=== PATIENT | female | born 1970 | race Caucasian/White ===

== ENCOUNTER → 2016-10-20 | Outpatient (CLI) | payer BC ==
[~2016-10-20] MED LIST: DICL-201 PO
--- NOTE | 2016-10-20 15:21 | MAMMOGRAPHY REPORT ---
BILATERAL DIGITAL SCREENING MAMMOGRAM TOMOSYNTHESIS WITH CAD: 10/20/2016 CLINICAL HISTORY: Routine screening. Patient has no complaints. TECHNIQUE: Breast tomosynthesis in addition to standard 2D mammography was performed. Current study was also evaluated with a Computer Aided Detection (CAD) system. COMPARISON: Comparison is made to exams dated: 10/05/2015 mammogram, 10/02/2014 mammogram, 08/04/2013 mammogram, 07/11/2012 mammogram, and 07/11/2011 mammogram - [facility]. BREAST COMPOSITION: The tissue of both breasts is heterogeneously dense, which may obscure small ma sses. FINDINGS: No suspicious masses, calcifications, or areas of architectural distortion are noted in e ither breast. There has been no significant interval change compared to prior exams. IMPRESSION: ACR BI-RADS CATEGORY 1: NEGATIVE There is no mammographic evidence of malignancy. A 1 year screening mammogram is recommended. The p atient will receive written notification of the results. Approximately 10% of breast cancers are not detected with mammography. A negative mammographic repor t should not delay biopsy if a clinically suggestive mass is present. Kelsea Persaud M.D. ah/:10/20/2016 15:12:29 Manager Mall: Nerissa RENE(Jazmin)(M), [facility] letter sent: Normal 1/2 BI-RADS Code: ACR BI-RADS Category 1: Negative
== END | disposition home or self-care (01) ==
LOC: C.MAMM 10:57
PROVIDERS: ATTEND Internal Medicine
DX: Z12.31 Encounter for screening mammogram for malignant neoplasm of breast (principal)

== ENCOUNTER → 2017-04-12 | Outpatient (CLI) | payer BC ==
[2017-04-12 12:11] LABS: HEMATOCRIT 35.3 % (37-47); MEAN CELL VOLUME 77.4 fL (80-100); MEAN CORPUSCULAR HEMOGLOBIN 24.1 pg (25-34); MEAN CORPUSCULAR HGB CONC 31.2 g/dl (32-36); MEAN PLATELET VOLUME 9.5 fL (7.4-10.4); PLATELET COUNT 365 K/uL (130-400); RED BLOOD COUNT 4.56 M/uL (4.2-5.4); WHITE BLOOD COUNT 6.14 K/uL (4.8-10.8)
[2017-04-12 12:39] LABS: ALT/SGPT 18 U/L (12-78); AST/SGOT 19 U/L (15-37); BLOOD UREA NITROGEN 14 mg/dl (7-18); BUN/CREATININE RATIO 16.9 (10-20); C-REACTIVE PROTEIN < 0.29 mg/dl (0-0.29); CALCIUM 8.9 mg/dl (8.5-10.1); CARBON DIOXIDE 26 mmol/L (21-32); CHLORIDE 109 mmol/L (98-107); GLUCOSE 91 mg/dl (70-99); POTASSIUM 4.2 mmol/L (3.5-5.1); SODIUM 140 mmol/L (136-145)
[2017-04-12 12:48] LABS: ALKALINE PHOSPHATASE 50 U/L (45-117)
[2017-04-12 13:26] LABS: ACANTHOCYTES 1+; COMPLETE YES; EOSINOPHIL % 6.9 %; LARGE GRANULAR LYMPH ABSOLUTE 2.22 K/uL; LARGE GRANULAR LYMPHOCYTE % 36.2 %; LYMPH ABS # 1.59 K/uL (1.2-3.4); LYMPHOCYTE % 25.9 %; NEUTROPHILS % 27.6 %
[2017-04-12 16:03] LABS: LYME DISEASE AB IGG NEG (NEG); LYME DISEASE AB IGM POS (NEG)
[2017-04-18 08:54] LABS: 18KDIGG BAND NONREACTIVE (NONREACTIVE); 23KDIGG BAND NONREACTIVE (NONREACTIVE); 23KDIGM BAND REACTIVE (NONREACTIVE); 28KDIGG BAND NONREACTIVE (NONREACTIVE); 30KDIGG BAND NONREACTIVE (NONREACTIVE); 39KDIGG BAND NONREACTIVE (NONREACTIVE); 39KDIGM BAND NONREACTIVE (NONREACTIVE); 41KDIGG BAND NONREACTIVE (NONREACTIVE); 41KDIGM BAND NONREACTIVE (NONREACTIVE); 45KDIGG BAND REACTIVE (NONREACTIVE); 58KDIGG BAND NONREACTIVE (NONREACTIVE); 66KDIGG BAND NONREACTIVE (NONREACTIVE); 93KDIGG BAND NONREACTIVE (NONREACTIVE)
== END | disposition home or self-care (01) ==
LOC: C.LAB1850 11:02
PROVIDERS: ATTEND Internal Medicine
DX: D64.9 Anemia, unspecified (principal); R51 Headache; M79.1 Myalgia

== ENCOUNTER → 2017-04-18 | Outpatient (CLI) | payer BC ==
--- NOTE | 2017-04-18 10:52 | DIAGNOSTIC IMAGING REPORT ---
MRI OF THE BRAIN WITHOUT CONTRAST CLINICAL HISTORY: LEFT ARM NUMBNESS, DAILY BARRETT, LIGHTHEADEDNESS, COMPARISON STUDY: None. FINDINGS: Sagittal T1, axial diffusion, proton density and T2 weighted axial, coronal FLAIR, and axial T1-weighted images were acquired. No intra or extra-axial mass lesions are visualized Axial diffusion-weighted images reveal no evidence of acute or subacute infarction. There is no evidence of ventricular dilatation. Proton density T2-weighted and FLAIR images reveal no significant intraparenchymal angle abnormalities. There are no abnormal flow voids. IMPRESSION: Normal MRI of the brain for age. Electronically signed by: Richmond Quispe M.D. 04/18/2017 10:51 AM Dictated Date/Time: 04/18/2017 10:49 AM
== END | disposition home or self-care (01) ==
LOC: C.MRIBC 09:57
PROVIDERS: ATTEND Internal Medicine
DX: C91.90 Lymphoid leukemia, unspecified not having achieved remission (principal); R42 Dizziness and giddiness; G47.9 Sleep disorder, unspecified; R20.0 Anesthesia of skin; R51 Headache

== ENCOUNTER → 2017-10-23 | Outpatient (CLI) | payer OTHER ==
--- NOTE | 2017-10-24 07:57 | MAMMOGRAPHY REPORT ---
BILATERAL DIGITAL SCREENING MAMMOGRAM TOMOSYNTHESIS WITH CAD: 10/23/2017 CLINICAL HISTORY: Routine screening. TECHNIQUE: Breast tomosynthesis in addition to standard 2D mammography was performed. Current study was also evaluated with a Computer Aided Detection (CAD) system. COMPARISON: Comparison is made to exams dated: 10/20/2016 mammogram, 10/05/2015 mammogram, 10/02/2014 m ammogram, 08/04/2013 mammogram, 07/11/2012 mammogram, and 07/11/2011 mammogram - [facility]. BREAST COMPOSITION: The tissue of both breasts is heterogeneously dense, which may obscure small mas ses. FINDINGS: The parenchymal pattern is unchanged. No developing mass, architectural distortion or clus ter of suspicious microcalcifications is seen in either breast. IMPRESSION: ACR BI-RADS CATEGORY 2: BENIGN There is no mammographic evidence of malignancy. A 1 year screening mammogram is recommended. The pa tient will receive written notification of the results. Approximately 10% of breast cancers are not detected with mammography. A negative mammographic report should not delay biopsy if a clinically suggestive mass is present. Moraima Randall M.D. ay/:10/23/2017 15:55:10 Career Services Manager: Nerissa RENE(R)(M), [facility] letter sent: Normal 1/2 BI-RADS Code: ACR BI-RADS Category 2: Benign
== END | disposition home or self-care (01) ==
LOC: C.MAMM 11:10
PROVIDERS: ATTEND Internal Medicine
DX: Z12.31 Encounter for screening mammogram for malignant neoplasm of breast (principal)

== ENCOUNTER → 2017-11-12 | Outpatient (CLI) | payer OTHER ==
--- NOTE | 2017-11-12 10:39 | DIAGNOSTIC IMAGING REPORT ---
RIGHT ANKLE ULTRASOUND CLINICAL HISTORY: D17.9 Lipoma right ankle lateral [id number] COMPARISON STUDY: No previous studies for comparison. FINDINGS: Ultrasonographic evaluation of the lateral right ankle was performed. No discrete masses are visualized ultrasonographically. IMPRESSION: No focal masses were visualized ultrasonographically in the area of clinical concern. Electronically signed by: Richmond Quispe M.D. 11/12/2017 10:38 AM Dictated Date/Time: 11/12/2017 10:36 AM
== END | disposition home or self-care (01) ==
LOC: C.ULTRBC 10:20
PROVIDERS: ATTEND Internal Medicine
DX: D17.9 Benign lipomatous neoplasm, unspecified (principal)